=== PATIENT | female | born 1965 | race American Indian/Alaskan Native ===

== ENCOUNTER 2019-10-02 09:43 | Emergency (ER) | payer SELFPAY ==
[2019-10-02 09:55] VITALS: BP 177/96
[2019-10-02 10:30] LABS: Basophils % (Auto) 0.8 % (0.0-1.8); Eosinophils # (Auto) 0.1 K/mm3 (0.0-0.4); Eosinophils % (Auto) 1.9 % (0.0-4.3); Hematocrit 46.3 % (30.3-42.9); Hemoglobin 15.3 gm/dl (10.1-14.3); Lymphocytes # (Auto) 2.4 K/mm3 (1.2-5.4); Lymphocytes % (Auto) 43.7 % (13.4-35.0); Mean Corpuscular HGB Conc 33 % (30-34); Mean Corpuscular Volume 91 fl (79-97); Monocytes # (Auto) 0.4 K/mm3 (0.0-0.8); Monocytes % (Auto) 7.5 % (0.0-7.3); Red Cell Distribution Width 14.2 % (13.2-15.2)
[2019-10-02 10:58] LABS: Alanine Aminotransferase 18 units/L (7-56); Albumin 4.2 g/dL (3.9-5); BUN/Creatinine Ratio 24; Blood Urea Nitrogen 19 mg/dL (7-17); Calcium 10.3 mg/dL (8.4-10.2); Hemolysis Index 8
[2019-10-02 11:29] LABS: Platelet Count 209 K/mm3 (140-440)
--- NOTE | 2019-10-02 11:48 | Emergency Department Report ---
ED Headache HPI - General Chief Complaint: High BP Stated Complaint: HIGH BLOOD PRESSURE Time Seen by Provider: 10/02/19 11:43 Source: patient Exam Limitations: no limitations - History of Present Illness Initial Comments: Patient is a 54-year-old female that presents emergency room with complaints of headache. Patient states her headache started shortly after running out of her blood pressure medication. Patient states her headache has improved since being here. Patient states that her pressure is elevated due to missing her lisinopril 10 mg. Patient states that her headache when she arrived here was a 10 out of 10 and now it is a 5 out of 10. Patient states that as her blood pressure better for her headache improved. Patient denies weakness. Patient denies chest pain shortness of breath. Patient denies blurry vision. Patient denies stiff neck. Patient denies fever and chills. Patient denies dizziness. Patient denies loss of consciousness or syncopal episode. Timing/Duration: 1 week, episodic Quality: mild, constant, pressure Head Injury Location: global Modifying Factors: improves with: medication, rest Associated Symptoms: denies: confusion, fatigue, facial pain, fever/chills, flushing, loss of consciousness, nausea/vomiting, nasal congestion, nasal drainage, numbness in legs/feet, rash, seizures, sinus infection, stiff neck, vision changes, weakness Allergies/Adverse Reactions: Allergies No Known Allergies Allergy (Unverified 10/02/19 09:44) Home Medications: Ambulatory Orders Lisinopril/Hydrochlorothiazide [Zestoretic 10-12.5 mg Tablet] 1 each PO DAILY # 15 tablet 10/02/19 ED Review of Systems ROS: Stated complaint: HIGH BLOOD PRESSURE Other details as noted in HPI Constitutional: denies: chills, fever Eyes: denies: eye pain, eye discharge, vision change ENT: denies: ear pain, throat pain Respiratory: denies: cough, shortness of breath, wheezing Cardiovascular: denies: chest pain, palpitations Endocrine: no symptoms reported Gastrointestinal: denies: abdominal pain, nausea, diarrhea Genitourinary: denies: urgency, dysuria, discharge Musculoskeletal: denies: back pain, joint swelling, arthralgia Skin: denies: rash, lesions Neurological: headache. denies: weakness, paresthesias Psychiatric: denies: anxiety, depression Hematological/Lymphatic: denies: easy bleeding, easy bruising ED Past Medical Hx - Past Medical History Previous Medical History?: Yes Hx Hypertension: Yes - Surgical History Past Surgical History?: No - Family History Family history: no significant - Social History Smoking Status: Never Smoker Substance Use Type: Alcohol - Medications Home Medications: Home Medications Medication Instructions Recorded Confirmed Last Taken Type Lisinopril/Hydrochlorothiazide 1 each PO DAILY #15 tablet 10/02/19 Unknown Rx [Zestoretic 10-12.5 mg Tablet] ED Physical Exam - General Limitations: No Limitations General appearance: alert, in no apparent distress - Head Head exam: Present: atraumatic, normocephalic - Eye Eye exam: Present: normal appearance. Absent: PERRL Pupils: Absent: normal accommodation - ENT ENT exam: Present: mucous membranes moist - Neck Neck exam: Present: normal inspection - Respiratory Respiratory exam: Present: normal lung sounds bilaterally. Absent: respiratory distress, wheezes, rales - Cardiovascular Cardiovascular Exam: Present: regular rate, normal rhythm. Absent: systolic murmur, diastolic murmur, rubs, gallop - GI/Abdominal GI/Abdominal exam: Present: soft, normal bowel sounds - Extremities Exam Extremities exam: Present: normal inspection - Back Exam Back exam: Present: normal inspection - Neurological Exam Neurological exam: Present: alert, oriented X3 - Psychiatric Psychiatric exam: Present: normal affect, normal mood - Skin Skin exam: Present: warm, dry, intact, normal color. Absent: rash ED Course Vital Signs 10/02/19 09:52 Temperature 97.6 F Pulse Rate 63 Respiratory 20 Rate Blood Pressure 177/96 O2 Sat by Pulse 98 Oximetry - Reevaluation(s) Reevaluation #1: I discussed all results with patient. I discussed plan of care with patient. Patient is stable for discharge. Patient will be discharged home. Patient agrees with plan of care. I discussed discharge instructions with patient. Patient voiced understanding of discharge instructions. 10/02/19 11:51 ED Medical Decision Making - Lab Data Result diagrams: 10/02/19 10:00 10/02/19 10:00 - Medical Decision Making Patient is a 54-year-old female that presents emergency room with a headache secondary to her blood pressure. Patient's neurologic exam is normal. Zbigniew tsang's labs unremarkable. Patient will be given a refill of her blood pressure medication lisinopril 10 mg. - Differential Diagnosis hypertension. Noncompliance. Headache. Critical care attestation.: If time is entered above; I have spent that time in minutes in the direct care of this critically ill patient, excluding procedure time. ED Disposition Clinical Impression: Noncompliance Headache Qualifiers: Headache type: unspecified Headache chronicity pattern: acute headache Intractability: not intractable Qualified Code(s): R51 - Headache Hypertension Qualifiers: Hypertension type: essential hypertension Qualified Code(s): I10 - Essential (primary) hypertension Disposition: TO HOME OR SELFCARE Is pt being admited?: Yes Does the pt Need Aspirin: No Condition: Stable Instructions: Hypertension (ED), Low Sodium Diet (ED), DASH Eating Plan (ED), How to Take a Blood Pressure (ED), Heart Healthy Diet (ED) Additional Instructions: patient to follow-up with primary care in 2-3 days. Patient to return to ER condition worsens. Patient take Tylenol when necessary for pain. Patient to take meds as directed. Patient increase water. Patient to rest. Patient to eat a low-salt diet. Patient eat heart healthy diet. Patient to monitor blood pressure and keep a blood pressure log and take to her primary care. Prescriptions: Lisinopril/Hydrochlorothiazide [Zestoretic 10-12.5 mg Tablet] 1 each PO DAILY #15 tablet Referrals: MARINA BALTAZAR MD [Referring] - 2-3 Days CHRISTINE MELÉNDEZ MD [Staff Physician] - 2-3 Days Time of Disposition: 11:55
== END 2019-10-02 12:12 | disposition home or self-care (01) ==
LOC: ED 09:43
DX: I10 Essential (primary) hypertension (principal); Z79.899 Other long term (current) drug therapy
CPT/HCPCS: 36415; 80053; 85025; 99283

== ENCOUNTER 2021-08-18 07:23 | Day surgery (SDC) | payer BC ==
[~2021-08-18 07:23] MED LIST: SODIUM CHLORIDE 0.9% 1000 ML 1,000 ML IV SCH
--- NOTE | 2021-08-18 08:53 | Anesthesia Day of Surgery ---
Anesthesia Day of Surgery - Day of Surgery Patient Examined: Yes Patient H&P Reviewed: Yes Patient is NPO: Yes (water at 0600)
--- NOTE | 2021-08-18 08:53 | Anesthesia Consultation ---
Anesthesia Consult and Med Hx Date of service: 08/18/21 - Airway Anesthetic Teeth Evaluation: Good ROM Head & Neck: Adequate Mental/Hyoid Distance: Adequate Mallampati Class: Class II Intubation Access Assessment: Probably Good - Pre-Operative Health Status ASA Pre-Surgery Classification: ASA2 Proposed Anesthetic Plan: MAC - Pulmonary Hx Smoking: No Hx Respiratory Symptoms: No - Cardiovascular System Hx Hypertension: Yes (took antihypertensives this morning) Hx Heart Attack/AMI: No - Central Nervous System CVA: No - Endocrine Hx Renal Disease: No Hx Liver Disease: No Hx Insulin Dependent Diabetes: No Hx Non-Insulin Dependent Diabetes: No Hx Thyroid Disease: No - Other Systems Hx Obesity: Yes (BMI 38) - Additional Comments Anesthesia Medical History Comments: No hx anesthetic complications.
--- NOTE | 2021-08-18 11:57 | Procedure Note ---
Date of procedure: 08/18/21 Pre-op diagnosis: Colon Polyp Screening/ F/H/O Cancer (Breast Cancer-sister) Post-op diagnosis: other (Sigmoid Polyp (Solitary,10mm in size, removed by Hot,snare polypectomy)/ Minor,Internal Hemorrhoid) Procedure: Colonoscopy with Hot Snare Polypectomy Anesthesia: MAC Surgeon: VICTORINO HOLM Estimated blood loss: minimal Pathology: list Specimen disposition: to lab Condition: stable Disposition: same day (Avoid aspirin and NSAID for 5 days; otherwise resue home medication and F/U in 1to 2 weeks ([phone]).)
--- NOTE | 2021-08-18 13:09 | Post Anesthesia Evaluation ---
- Post Anesthesia Evaluation Patient Participated: Yes Airway Patent: Yes Stable Respiratory Function: Yes Nausea/Vomiting: No Temp > 96.8F: Yes Pain Manageable: Yes Adequeate Hydration: Yes Anesthesia Complications: No
[2021-08-18 13:29] VITALS: BP 124/78
--- NOTE | 2021-08-18 13:50 | Operative Report ---
DATE OF SURGERY: 08/18/2021 INDICATIONS: This is a 56-year-old -[place] female with a family history of cancer. The patient's sister had breast cancer. Colonoscopy was done as part of colon polyp screening. DESCRIPTION OF PROCEDURE: Procedure was done after getting informed consent with MAC anesthesia. Initial rectal examination was unremarkable. The instrument was passed through the rectum onto the cecum, which was identified into the ileocecal valve and the appendiceal orifice. Cecum, ascending colon, transverse colon, and descending colon showed normal mucosa in the distal to mid sigmoid at about 40 cm from the anal verge. There was a 10-mm sessile polyp noted that was removed by hot snare polypectomy and retrieved with minimal bleeding. Remaining part of the sigmoid and the rectum showed normal mucosa. There was minor internal hemorrhoid noted on the retroverted view. There was minimal bleeding from the polypectomy site and no complications associated with the procedure. ASSESSMENT: Colon polyp screening, family history of cancer, the patient's sister had breast cancer. Sigmoid polyp removed via hot snare polypectomy. Polyp was about 10 mm in size. Minor internal hemorrhoid. The patient will be asked to resume previous medication, avoid aspirin and aspirin-related products for the next few days and follow up in the office in 1-2 weeks' time. Procedure was done in the GI lab with assistance of the GI lab team, which included the GI nurse, the refractory technician and with assistance of anesthesia. TID: [id number] RECEIPT: [id number] ANDREA/DEVANTE/SID
== END 2021-08-18 13:00 | disposition home or self-care (01) ==
LOC: GIO 07:23
DX: Z12.11 Encounter for screening for malignant neoplasm of colon (principal); D12.5 Benign neoplasm of sigmoid colon; K64.0 First degree hemorrhoids; K63.89 Other specified diseases of intestine; I10 Essential (primary) hypertension; E66.9 Obesity, unspecified; Z80.0 Family history of malignant neoplasm of digestive organs; Z79.899 Other long term (current) drug therapy; Z68.38 Body mass index [BMI] 38.0-38.9, adult
CPT/HCPCS: 88305